=== PATIENT | female | born 1925 | race Caucasian/White ===

== ENCOUNTER 2016-04-16 16:56 | Emergency (ER) | payer MEDICARE, BC ==
[2016-04-16 16:56] VITALS: BMI 17.9
[2016-04-16 17:15] VITALS: TEMP 98.7
--- NOTE | 2016-04-16 17:22 | EDPRACDOC ---
- General Information Chief Complaint: Hand Pain Stated Complaint: FALL, RIGHT HAND PAIN Time Seen by Provider: 04/16/16 17:16 Mode of Arrival: Ambulance Home Medications: Home Medications Clopidogrel Bisulfate [Plavix] 75 mg PO DAILY 04/17/15 Dicyclomine HCl [Bentyl] 10 mg PO QAM 04/17/15 Pantoprazole Sodium [Protonix] 40 mg PO QAM 04/17/15 Acetaminophen [Mapap] 1,000 mg PO Q6H PRN 05/18/15 Ketotifen Fumarate 2 drop OU BID PRN 05/18/15 Amlodipine [Norvasc] 10 mg PO DAILY 02/16/16 Dicyclomine HCl [Bentyl] 20 mg PO Q6H PRN 02/16/16 Fluoxetine [Prozac] 10 mg PO DAILY 02/16/16 Meclizine HCl 25 mg PO Q6H PRN 02/16/16 Ondansetron HCl [Zofran] 8 mg PO Q8H PRN 02/16/16 Guaifenesin-Dextromethorphan [Robitussin Dm] 10 ml PO Q4H PRN 04/16/16 Lorazepam [Ativan] 1 mg PO Q8H PRN 04/16/16 Oxybutynin [Ditropan] 5 mg PO QHS 04/16/16 Quetiapine Fumarate [Seroquel] 50 mg PO QHS 04/16/16 Triamcinolone [Aristocort, Kenalog] 15 gm TOP BID PRN 04/16/16 Allergies/Adverse Reactions: Allergies Allergy/AdvReac Type Severity Reaction Status Date / Time amoxicillin Allergy Unknown Verified 02/16/16 15:59 - History of Present Illness Onset: patrol [employer] HPI: PT PRESENTS WITH DISTAL RIGHT THUMB PAIN AFTER FALL AT FACILITY. Location: Reports: Right, Thumb Dominant Hand: Right Mechanism: Reports: FOOSH Circumstances: Reports: Fall Associated Signs & Symptoms: Denies: Hand Pain, Wrist Pain, Forearm Pain, Elbow Pain ED Past Medical History - History Reviewed Yes Nurses notes reviewed and agree except as marked - Patient Medical History Neurological History: Denies: Seizures Cardiac History: Reports: Hypertension. Denies: Atrial Fibrillation, Syncope GI/ History: Reports: Gastroesophageal Reflux Psychological History: Denies: Depression Systemic History: Denies: Cancer Surgical History: Reports: Cholecystectomy - Social Medical History Smoking Status: Never smoker Lives In: [facility] Facility EDM Review of Systems - Review of Systems ROS Negative Except as Marked: Yes All systems reviewed and were negative except as marked Respiratory: negative: Shortness of Breath Cardiovascular: negative: Chest Pain Gastrointestinal: negative: Pain Neurological: negative: Headache Musculoskeletal: Hand (RIGHT DISTAL THUMB PAIN AFTER FALL.) - Physical Exam Constitutional: Alert Oriented to: Person, Place Last recorded Vital Signs: Last Vital Signs Temp 98.7 F 04/16/16 17:12 Pulse 82 04/16/16 17:12 Resp 20 04/16/16 17:12 BP 135/92 04/16/16 17:12 Pulse Ox 96 04/16/16 17:12 Oxygen Pulse Oxygen Saturation 96 O2 Device Room Air Oxygen Flow Rate Fraction of Inspired Oxygen ( FIO2) - HEENT Head: negative: Deformity, Laceration Eye Exam: negative: Conjunctival Injection, Pale Conjunctiva Oropharynx: negative: Membranes Dry Nose: negative: Congestion, Discharge Neck: negative: Limited ROM - Integumentary Skin: Warm, Dry. negative: Rash - Neurologic Motor Function: Normal Mood Description: Appropriate Thought: Coherent ED Hand Problem Physical Exam - Musculoskeletal Hand: Normal Wrist: Normal Digit: Mild Tenderness (DISTAL RIGHT THUMB). negative: Swelling, Deformity Digit Strength: Normal Nail: Normal Nailbed: Normal Soft Tissue: Normal Distal Function/Circulation: Normal Decision Time to Discharge: 17:53 - Departure Yes I personally saw and evaluated the patient. Disposition: Home Condition: Stable Final Diagnosis: Sprain of right thumb Qualifiers: Encounter type: initial encounter Sprain of finger site: unspecified site Qualified Code(s): S63.601A - Unspecified sprain of right thumb, initial encounter Instructions: RICE: Routine Care for Injuries Education/Counseling Given To: Patient, Family Member Education/Counseling Given Regarding: Diagnosis, Treatment, Prognosis, Follow Up Referrals: Kyree Diego MD [Primary Care Provider] - One Week Prescriptions: Continue Pantoprazole Sodium [Protonix] 40 mg PO QAM Dicyclomine HCl [Bentyl] 10 mg PO QAM Clopidogrel Bisulfate [Plavix] 75 mg PO DAILY Ketotifen Fumarate 2 drop OU BID PRN PRN Reason: ITCHY EYES Acetaminophen [Mapap] 1,000 mg PO Q6H PRN PRN Reason: PAIN OR FEVER >100 Fluoxetine [Prozac] 10 mg PO DAILY Dicyclomine HCl [Bentyl] 20 mg PO Q6H PRN PRN Reason: Abdominal Pain Ondansetron HCl [Zofran] 8 mg PO Q8H PRN PRN Reason: Nausea/Vomiting Amlodipine [Norvasc] 10 mg PO DAILY Meclizine HCl 25 mg PO Q6H PRN PRN Reason: Dizziness Guaifenesin-Dextromethorphan [Robitussin Dm] 10 ml PO Q4H PRN PRN Reason: DRY COUGH Lorazepam [Ativan] 1 mg PO Q8H PRN PRN Reason: Anxiety Or Agitation Quetiapine Fumarate [Seroquel] 50 mg PO QHS Oxybutynin [Ditropan] 5 mg PO QHS Triamcinolone [Aristocort, Kenalog] 15 gm TOP BID PRN PRN Reason: Itching
--- NOTE | 2016-04-16 17:48 | DIRPT ---
CLINICAL DATA: 89-year-old female with history of trauma from a fall complaining of pain in the right thumb. EXAM: RIGHT HAND - COMPLETE 3+ VIEW COMPARISON: Right hand radiograph 05/18/2015. FINDINGS: Three views of the right hand demonstrate no acute displaced fracture or dislocation. There is again multifocal joint space narrowing, subchondral sclerosis, subchondral cyst formation and osteophyte formation, most severe at the first CMC joint, but also involving the DIP and PIP joints. Mild osteopenia. IMPRESSION: 1. No acute radiographic abnormality of the right hand. 2. Degenerative changes of osteoarthritis redemonstrated, as above. Electronically Signed By: Jay Osorio M.D. On: 04/16/2016 17:45
[2016-04-16 18:09] VITALS: BP 128/62; PULSE 85
== END 2016-04-16 18:08 | disposition home or self-care (01) ==
LOC: ED 16:56
DX: S63.601A Unspecified sprain of right thumb, initial encounter (principal); X58.XXXA Exposure to other specified factors, initial encounter; Y93.9 Activity, unspecified
CPT/HCPCS: 99283